=== PATIENT | female | born 1935 | race Caucasian/White ===

== ENCOUNTER 2017-06-04 12:45 | Emergency (ER) | payer OTHER, BC | END 2017-06-04 12:48 | disposition left against medical advice (07) | LOC: CED 12:45 | DX: Z53.21 Procedure and treatment not carried out due to patient leaving prior to being seen by health care provider (principal) ==

== ENCOUNTER → 2017-07-14 | Outpatient (CLI) | payer OTHER, BC | LOC: FIMAGING 18:42 | PROVIDERS: ATTEND Physical Medicine & Rehabilitation Pain Medicine | DX: M54.16 Radiculopathy, lumbar region (principal); M48.06 Spinal stenosis, lumbar region; M71.38 Other bursal cyst, other site ==